=== PATIENT | female | born 2000 | race Two or more races ===

== ENCOUNTER 2025-08-26 06:15 | Inpatient (IN) | payer MEDICAID ==
[2025-08-25 14:33] LABS: Hematocrit 36.4 % (36.0-46.0); Hemoglobin 11.7 g/dL (12.2-16.2); Mean Corpuscular Hemoglobin 26.3 pg (28.0-32.0); Mean Corpuscular Volume 81.6 fL (80.0-100.0); Nucleated Red Blood Cells % 0.0 %
[2025-08-25 14:47] LABS: INR 1.02 (0.9-1.15); Partial Thromboplastin Time 29.7 SEC (24.5-34.5); Prothrombin Time 10.8 sec (9.3-11.8)
[2025-08-25 15:06] LABS: Urine Protein, UAD TRACE (Negative)
[2025-08-25 15:43] LABS: Alkaline Phosphatase 112 U/L (46-116); Anion Gap 10 (5-15); BUN/Creatinine Ratio 18.2 (10.0-20.0); Blood Urea Nitrogen 12 mg/dL (9-23); Calcium 9.4 mg/dL (8.7-10.4); Carbon Dioxide 26 mmol/L (20-31); Chloride 104 mmol/L (98-107); Glucose 106 mg/dL (74-106); Potassium 4.2 mmol/L (3.5-5.1); Sodium 140 mmol/L (136-145)
[2025-08-25 15:44] LABS: Albumin 4.6 g/dL (3.2-4.8); Bilirubin, Total 0.4 mg/dL (0.2-1.0)
[2025-08-25 15:49] LABS: Alanine Aminotransferase 293 U/L (7-40); Total Protein 8.3 g/dL (5.7-8.2)
[2025-08-26] VITALS (8 sets, daily range): BP systolic 10–120; BP diastolic 70–83; PULSE 80–109; RESP 14–20; TEMP 97.6–98; O2SAT 93–100
[~2025-08-26] VITALS: Ht 160 cm; Wt 78.9 kg
[2025-08-26] MEDS: SUCCINYLCHOLINE CHLORIDE 20 MG/ML 10ML VIAL IV ONE (07:27)
[2025-08-26] MEDS: ROCURONIUM 10MG/ML 10ML VIAL IV ONE (07:27)
[2025-08-26] MEDS ORDERED: MORPHINE SULFATE INJ 2 MG/ml SYRG IV PRN (07:30)
[2025-08-26] MEDS ORDERED: HYDROmorphone HCL 2 MG/ML VL/or syr IV PRN ×2 (07:30)
[2025-08-26] MEDS: KETOROLAC TROMETH 30 MG/ML 1ML VIAL IV ONE (07:30)
[2025-08-26] MEDS: TRANEXAMIC ACID 20 ML ONE (07:31)
--- NOTE | 2025-08-26 07:34 | DVHHP2 ---
History Allergies: Coded Allergies: NO KNOWN ALLERGIES (Unverified , 08/24/25) Chief Complaint: Symptomatic cholelithiasis Present Illness(Onset/Duration Mrs. Lalo gil is a 25-year-old female who presents today for elective laparoscopic cholecystectomy. She has had symptomatic cholelithiasis for sev eral months now. She has a ultrasound from 04/08/2025 that shows multiple gallstones within the gallbladder wall lumen. She has no complaints this morning, is not sacral recently sick, denies fevers chills nausea vomiting changes in urinary or stooling habits. Brother withVonWillebrand's disease Past Surgical History Past medical history gallstones past surgical history denies Physical Exam Skin No jaundice EENT No icterus, neck supple Chest and Lungs Nonlabored breathing with symmetric expansion Abdomen Nondistended, soft, depressible, nontender Plan Mrs. Soriano is a 25-year-old female who presents with symptomatic cholelithiasis for elective laparoscopic cholecystectomy. Patient does not have any questions this morning and would like to proceed with surgery as planned. -we will proceed with surgery as planned -we will need admission for observation JESSICA RIVERA MD Aug 26, 2025 07:34
[2025-08-26] MEDS ORDERED: KETAMINE 50mg/ML 1ml syringe ONE (07:43)
[2025-08-26] MEDS ORDERED: MIDAZOLAM HCL 2MG/2ML 2ml VIAL (1mg/ml) ONE (07:43)
[2025-08-26] MEDS ORDERED: MEPERIDINE HCL (25 MG/ML) 1ML VIAL ONE (07:43)
[2025-08-26] MEDS ORDERED: fentaNYL CITRATE 100 MCG/2 ML VL ONE (07:43)
[2025-08-26] MEDS ORDERED: PROPOFOL 10 MG/ML 20 ML IV ONE (07:43)
[2025-08-26] MEDS ORDERED: LIDOCAINE 1% INJ PF 5ML AMP ONE (07:43)
[2025-08-26] MEDS ORDERED: SODIUM CHLORIDE LOCK 10 ML ONE (07:43)
[2025-08-26] MEDS ORDERED: LIDOCAINE HCL 2% TOP JELLY 5ML TOP ONE (07:43)
[2025-08-26] MEDS ORDERED: ONDANSETRON HCL 4 MG/2 ML VIAL ONE (07:43)
[2025-08-26] MEDS ORDERED: GLYCOPYRROLATE 0.2 MG/ML 1ML VIAL ONE (08:48)
[2025-08-26] MEDS ORDERED: NEOSTIGMINE 1 MG/ML INJ (10mg/10ML VIAL) ONE (08:48)
[2025-08-26] MEDS: BUPIVACAINE 0.25% INJ 50ML VIAL ONE (09:03)
--- NOTE | 2025-08-26 09:29 | DVHOP2 ---
Operative Report - 2 Report Details Date: 08/26/25 Preop Diagnosis: Symptomatic cholelithiasis Postop Diagnosis: Same Surgeon: Jad Pena MD Anesthesiologist: Dr. Hutchinson Anesthesia: General Consent: The patient was informed of the risks and benefits of the procedure. These include but are not limited to complications of anesthesia, postoperative infection, incomplete relief of symptoms, recurrence of symptoms, damage to blood vessels, nerves and tendons, deep venous thrombosis, pulmonary embolism and possible need for repeat surgery in the future. Complications: None Estimated Blood Loss: 10 mL Findings: Normal-appearing gallbladder. Fatty liver Indications for Surgery: Symptomatic gallstones Name of Procedure Performed Laparoscopic cholecystectomy Procedure Details Procedure Details: Upon arriving to the operating room the patient was transferred to the operating table and placed in the supine position with arms extended. General endotracheal anesthesia was induced. Time-out was observed. Patient was prepped and draped in the standard sterile surgical fashion with chlorhexidine. I then proceeded to make an infraumbilical curvilinear incision and carried the dissection down to fascia. Once at the fascia I grasped the umbilical stalk with a Ct clamp and walked it to its base. Once at the base of the umbilical stalk it was retracted superiorly and I entered the peritoneal cavity utilizing Laura technique. I then placed a [id number] fascial retention stitch of 0 Vicryl. I then introduced the Laura cannula and insufflated the peritoneal cavity to 15 mmHg with toleration. I then introduced a 10 mm 30 degree laparoscope, surveyed the entry site, no injuries noted. Patient was then placed in the reverse Trendelenburg [id number] position. I then placed 3 additional working ports 5 mm incised, at the epigastric area, at the midclavicular subcostal area, and right flank area. I then directed my attention to the liver and gallbladder. The liver was enlarged, consistent with fatty liver. Gallbladder was then grasped at its fundus and retracted cephalad and towards the right shoulder, the gallbladder appeared normal. A 2nd retractor was placed in the infundibulum and retracted laterally. I then proceeded to incise the overlying peritoneum at the base of the gallbladder and carried the dissection down to the liver, thus exposing Calot triangle. While doing this I got into a lateral gallbladder vessel, has some bleeding from it, controlled it with a clip and hemostasis achieved. I then proceeded to fully skeletonize Calot triangle until I saw 2 and only 2 structures entering the gallbladder, the cystic duct and cystic artery. Critical view was obtained. I then proceeded to milk the cystic duct for any stones, non felt. I then proceeded to clip the cystic duct with 3 5 mm clips proximal 1 distal. The artery was clipped with 2 5 mm clips proximal 1 distal. Both the duct and artery were transected. I then carefully started taking down the gallbladder attachments to the liver, and I encountered posterior cystic artery branch, this posterior artery was dissected and clipped twice proximal 1 distal. This posterior artery was transected. I then continued taking the gallbladder off of the liver bed with electrocautery. Once the gallbladder was completely off of the liver bed it was placed in the Endo-Catch bag and taken out of the peritoneal cavity through the infraumbilical incision. I then proceeded to take a look at the gallbladder fossa, there were some small areas of ooze, that were cauterized and hemostasis achieved. I then irrigated the fossa under the liver and over the liver until all effluent was clear. I then proceeded to take a 2nd look at the gallbladder fossa, it was hemostatic. I then took a look at the clips they were all in place and everything was hemostatic. This concluded the intraperitoneal portion of the operation. I then proceeded to remove the 3 5 mm working ports under direct vision, no bleeding from abdominal wall. The peritoneal cavity was allowed to fully desufflate. All counts complete and correct at the end of procedure. The previous fascial retention stitch was closed, and I had to place 2 additional interrupted 0 Vicryl stitches in the inferior pole of the fascia given that it was still open. After placing these 2 additional interrupted stitches, fascia was completely closed. All skin sites were closed with 4-0 Monocryl and Dermabond. 0.25% Marcaine was used as local anesthetic. Patient tolerated the procedure well and was transferred to PACU in stable condition. Specimen: Gallbladder and contents Condition Stable Disposition Still a Patient JAD RIVERA MD Aug 26, 2025 09:28
[2025-08-26] MEDS ORDERED: HYDROcodone-ACET 5/325MG TAB PO PRN (09:30)
[2025-08-26] MEDS: ACETAMINOPHEN IV 100 ML IV ONE (09:30)
[2025-08-26] MEDS: ACETAMINOPHEN IV 1000 MG/100ML (10MG/ML) IV ONE (10:01)
[2025-08-26] MEDS: METOCLOPRAMIDE HCL 5MG/ml INJ 2ml VIAL IV PRN (10:01)
[2025-08-26] MEDS: MORPHINE SULFATE 4 MG/ML SYR/VIAL IV PRN (10:02)
[2025-08-26] MEDS: ACETAMINOPHEN 325 MG TAB PO SCH (10:04)
[2025-08-26] MEDS: HYDROcodone-ACET 10/325MG TAB PO PRN (15:50)
[2025-08-27 01:00] VITALS: BP 106/74; PULSE 85; RESP 18; TEMP 98.3; O2SAT 93
[2025-08-27 05:00] VITALS: BP 111/79; PULSE 83; RESP 18; TEMP 98.3; O2SAT 94
[2025-08-27 06:50] LABS: Hematocrit 32.1 % (36.0-46.0); Hemoglobin 10.6 g/dL (12.2-16.2); Mean Corpuscular Hemoglobin 27.1 pg (28.0-32.0); Mean Corpuscular Volume 81.8 fL (80.0-100.0); Nucleated Red Blood Cells % 0.0 %
[2025-08-27 07:02] LABS: Albumin 4.2 g/dL (3.2-4.8); Alkaline Phosphatase 91 U/L (46-116); Anion Gap 10 (5-15); BUN/Creatinine Ratio 13.1 (10.0-20.0); Calcium 9.0 mg/dL (8.7-10.4); Carbon Dioxide 25 mmol/L (20-31); Chloride 104 mmol/L (98-107); Glucose 99 mg/dL (74-106); Potassium 3.8 mmol/L (3.5-5.1); Sodium 139 mmol/L (136-145); Total Protein 7.4 g/dL (5.7-8.2)
[2025-08-27 07:03] LABS: Bilirubin, Total 0.5 mg/dL (0.2-1.0)
[2025-08-27 07:09] LABS: Alanine Aminotransferase 212 U/L (7-40); Blood Urea Nitrogen 8 mg/dL (9-23)
[2025-08-27 07:37] LABS: Bilirubin, Direct 0.2 mg/dL (<0.3)
[2025-08-27 08:00] VITALS: PULSE 87; RESP 18
[2025-08-27 09:00] VITALS: BP 116/77; PULSE 87; RESP 18; TEMP 98.1; O2SAT 97
[2025-08-27] MEDS ORDERED: ACETAMINOPHEN 500 MG TAB or CAP PO ONE ×2 (09:15)
[2025-08-27] MEDS: ACETAMINOPHEN 325 MG TAB PO ONE (10:04)
--- NOTE | 2025-08-27 10:43 | DVHPN2 ---
Progress Note - Surgical Date Seen: Aug 27, 2025 Post op day Post op day: 1 Subjective Patient reports: Feels better (Patient feeling well, tolerating diet, pain manageable with pain meds and without any complaints.) Review of Systems: Deferred Objective Vital signs Vital Sign Date Time Temp Pulse Resp B/P (MAP) Pulse Ox O2 Delivery O2 Flow Rate FiO2 08/27/25 10:04 98.1 08/27/25 09:00 87 18 116/77 (90) 97 08/26/25 20:00 Room Air* 0 21 Total Intake and Output 08/26/25 08/26/25 08/27/25 15:00 23:00 07:00 Intake Total 100 ml 300 ml 400 ml Balance 100 ml 300 ml 400 ml Medications Current Medications Medications Dose Ordered Sig/Dominick Route Start Time Stop Time Status Last Admin Dose Admin Acetaminophen 650 mg Q6HR PO 08/26/25 12:00 08/27/25 00:09 650 MG Acetaminophen/ Hydrocodone Bitart 1 tab Q4HPRN PRN PO 08/26/25 09:30 Acetaminophen/ Hydrocodone Bitart 1 tab Q4HP PRN PO 08/26/25 09:30 08/26/25 15:50 1 TAB Laboratory Laboratory Tests 08/27/25 06:23 Test 08/27/25 06:23 Range/Units Serum Glucose 99 74-106 mg/dL Examination: GENERAL:Normal (AAO x3), HEENT:Normal (No icterus, neck supple), LUNGS:Normal (Nonlabored breathing with symmetric expansion), ABDOMEN:Normal (Nondistended, soft, depressible, incision sites with overlying skin glue, no surrounding ecchymosis, no signs of infection, appropriate tenderness), SKIN:Normal (No jaundice) Labs and/or images reviewed: Labs reviewed by me (No leukocytosis) Problem List/Assessment/Plan Assessment and Plan Mrs. Soriano is a 25-year-old female who presented for elective cholecystectomy and is currently postop day 1 from laparoscopic cholecystectomy for symptomatic cholelithiasis. Patient was admitted for overnight observation given that she has a unclear diagnosis of von Willebrand's disease. Last this morning pretty unremarkable, no leukocytosis, hemoglobin minimal downtrend is likely to interrupt losses + IV fluid hydration, transaminitis without elevation of T bilirubin level due to cautery of the liver. Patient is doing well and is cleared for discharge per surgical standpoint. 1. Cleared for discharge per surgical standpoint 2. Already prescribed Tylenol 3 [facility] 3. No lifting over 10 lb for 6 weeks 4. May shower, soap and water okay to run over incision sites. No swimming and/or bathing for 2 weeks. 5. 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 For better results alternate the medications. 6. No driving while taking narcotics 7. Low-fat diet 8. Follow up with Dr. Gray at [facility] in 2-4 weeks, please call for appointment. Plan discussed with Plan discussed with: Patient Visit Coding Surgery Date of Service if different f: Aug 27, 2025 Billing Provider: JESSICA RIVERA MD Surgery Visit Codes: [id number] INP/OBS CARE(HIGH) JESSICA RIVERA MD Aug 27, 2025 10:43
--- NOTE | 2025-08-27 11:47 | DVHINCON2 ---
Date Seen: Aug 27, [address] Jad Gray History of Present Illness Came for elective cholecystectomy yesterday Had procedure and going well PMH none Past Medical History PMH none Past Surgical History None Family History: Diabetes mellitus G8 FATHER Allergies: Coded Allergies: NO KNOWN ALLERGIES (Unverified , 08/24/25) Home Meds No Active Prescriptions or Reported Meds Current Medications Current Medications Medications (Trade) Dose Ordered Sig/Dominick Route PRN Reason Start Time Stop Time Status Last Admin Acetaminophen (Tylenol Tablet) 650 mg Q6HR PO 08/26/25 12:00 08/27/25 00:09 Vital Signs Vital Signs Date Time Temp Pulse Resp B/P (MAP) Pulse Ox O2 Delivery O2 Flow Rate FiO2 08/27/25 10:04 98.1 08/27/25 09:00 87 18 116/77 (90) 97 08/26/25 20:00 Room Air* 0 21 Physical Exam GEN: Healthy appearing, well-developed, NAD. PSYCH: Good Judgment. AOx3. Normal memory, mood, and affect. HEENT: -Head: NC/AT; -Eyes: No discharge or redness; -Ears: External ears are normal. -Nose: Normal nares. -Mouth and throat: MMM. Normal gums, mucosa, palate,. Good dentition. CV: RRR, no m/r/g. LUNGS: CTAB, no w/r/c. ABD: Soft, NT/ND, NBS, no masses or organomegaly. : N/A SKIN: Warm, well perfused. No skin rashes or abnormal lesions. MSK: Normal gait. No deformities. EXT: No clubbing, cyanosis, or edema. NEURO: Ambulating with no limitations. No focal deficits. Labs/Diagnostic Data Labs Test 08/27/25 06:23 08/25/25 14:20 Range/Units White Blood Count 9.4 4.4-10.8 10^3/uL Red Blood Count 3.93 L 4.0-5.20 10^6/uL Hemoglobin 10.6 L 12.2-16.2 g/dL Hematocrit 32.1 #L 36.0-46.0 % Mean Corpuscular Volume 81.8 80.0-100.0 fL Mean Corpuscular Hemoglobin 27.1 L 28.0-32.0 pg Mean Corpuscular Hemoglobin Concent 33.1 32.0-36.0 g/dL Red Cell Distribution Width 14.7 H 11.8-14.3 % Platelet Count 219 140-450 10^3/uL Mean Platelet Volume 7.6 6.9-10.8 fL Neutrophils (%) (Auto) 72.5 37.0-80.0 % Lymphocytes (%) (Auto) 19.4 10.0-50.0 % Monocytes (%) (Auto) 6.7 0.0-12.0 % Eosinophils (%) (Auto) 1.3 0.0-7.0 % Basophils (%) (Auto) 0.1 0.0-2.0 % Neutrophils # (Auto) 6.8 1.6-8.6 10 ^3/uL Lymphocytes # (Auto) 1.8 0.4-5.4 10 ^3/uL Monocytes # (Auto) 0.6 0-1.3 10 ^3/uL Eosinophils # (Auto) 0.1 0-0.8 10 ^3/uL Basophils # (Auto) 0 0-0.2 10 ^3/uL Nucleated Red Blood Cells 0.0 % Sodium Level 139 136-145 mmol/L Potassium Level 3.8 3.5-5.1 mmol/L Chloride Level 104 98-107 mmol/L Carbon Dioxide Level 25 20-31 mmol/L Anion Gap 10 5-15 Blood Urea Nitrogen 8 L 9-23 mg/dL Creatinine 0.61 0.550-1.02 mg/dL Glomerular Filtration Rate Calc 126 >90 mL/min BUN/Creatinine Ratio 13.1 10.0-20.0 Serum Glucose 99 74-106 mg/dL Calcium Level 9.0 8.7-10.4 mg/dL Total Bilirubin 0.5 0.2-1.0 mg/dL Direct Bilirubin 0.2 <0.3 mg/dL Aspartate Amino Transferase (AST) 108 H 13-40 U/L Alanine Aminotransferase (ALT) 212 H 7-40 U/L Alkaline Phosphatase 91 46-116 U/L Total Protein 7.4 5.7-8.2 g/dL Albumin 4.2 3.2-4.8 g/dL Prothrombin Time 10.8 9.3-11.8 sec Prothrombin Time INR 1.02 0.9-1.15 Activated Partial Thromboplast Time 29.7 24.5-34.5 SEC Urine Color Light-yellow Yellow Urine Clarity Clear Clear Urine pH 6.5 5.0-9.0 Urine Specific [place] 1.026 1.001-1.035 Urine Protein Trace H Negative Urine Ketones Negative Negative Urine Blood 1+ H Negative /uL Urine Nitrite Negative Negative Urine Bilirubin Negative Negative Urine Urobilinogen Normal Negative mg/dL Urine Leukocyte Esterase Trace Negative /uL Urine RBC 13 0 - 4 /hpf Urine Microscopic WBC 6 H 0-5 /HPF Urine Squamous Epithelial Cells Few <5 /hpf Urine Bacteria None seen None Seen /hpf Urine Mucus Few None Seen Urine Glucose Normal Normal mg/dL Urine Test Negative Negative Assessment Cholelithiasis s/p surgery Elevated transaminitis Most likely post surgery Plan/Recommendation Can be discharged from medically standpoint follow with PCP for liver labs Plan discussed with: Patient Date of Service: Aug 27, 2025 Billing Provider: ELBA DANG MD Common Visit Codes: [id number] INP/OBS CARE (HIGH) ELBA DANG MD Aug 27, 2025 11:47
[2025-08-27 13:00] VITALS: BP 111/72; PULSE 74; RESP 18; TEMP 97.9; O2SAT 97
[2025-08-27] MEDS ORDERED: HYDR-4902 PO (13:21)
[2025-08-27 15:28] VITALS: BP 116/77; PULSE 87; RESP 18; TEMP 98.1; O2SAT 97
--- NOTE | 2025-08-27 15:29 | DVHDS2 ---
Discharge Summary Date of Admission Aug 26, 2025 at 07:35 Date of Discharge: Aug 27, 2025 Labs/Diagnostic Data: Laboratory Results Test 08/27/25 06:23 08/25/25 14:20 White Blood Count 9.4 10^3/uL (4.4-10.8) Red Blood Count 3.93 10^6/uL (4.0-5.20) Hemoglobin 10.6 g/dL (12.2-16.2) Hematocrit 32.1 % (36.0-46.0) Mean Corpuscular Volume 81.8 fL (80.0-100.0) Mean Corpuscular Hemoglobin 27.1 pg (28.0-32.0) Mean Corpuscular Hemoglobin Concent 33.1 g/dL (32.0-36.0) Red Cell Distribution Width 14.7 % (11.8-14.3) Platelet Count 219 10^3/uL (140-450) Mean Platelet Volume 7.6 fL (6.9-10.8) Neutrophils (%) (Auto) 72.5 % (37.0-80.0) Lymphocytes (%) (Auto) 19.4 % (10.0-50.0) Monocytes (%) (Auto) 6.7 % (0.0-12.0) Eosinophils (%) (Auto) 1.3 % (0.0-7.0) Basophils (%) (Auto) 0.1 % (0.0-2.0) Neutrophils # (Auto) 6.8 10 ^3/uL (1.6-8.6) Lymphocytes # (Auto) 1.8 10 ^3/uL (0.4-5.4) Monocytes # (Auto) 0.6 10 ^3/uL (0-1.3) Eosinophils # (Auto) 0.1 10 ^3/uL (0-0.8) Basophils # (Auto) 0 10 ^3/uL (0-0.2) Nucleated Red Blood Cells 0.0 % Sodium Level 139 mmol/L (136-145) Potassium Level 3.8 mmol/L (3.5-5.1) Chloride Level 104 mmol/L (98-107) Carbon Dioxide Level 25 mmol/L (20-31) Anion Gap 10 (5-15) Blood Urea Nitrogen 8 mg/dL (9-23) Creatinine 0.61 mg/dL (0.550-1.02) Glomerular Filtration Rate Calc 126 mL/min (>90) BUN/Creatinine Ratio 13.1 (10.0-20.0) Serum Glucose 99 mg/dL (74-106) Calcium Level 9.0 mg/dL (8.7-10.4) Total Bilirubin 0.5 mg/dL (0.2-1.0) Direct Bilirubin 0.2 mg/dL (<0.3) Aspartate Amino Transferase (AST) 108 U/L (13-40) Alanine Aminotransferase (ALT) 212 U/L (7-40) Alkaline Phosphatase 91 U/L (46-116) Total Protein 7.4 g/dL (5.7-8.2) Albumin 4.2 g/dL (3.2-4.8) Prothrombin Time 10.8 sec (9.3-11.8) Prothrombin Time INR 1.02 (0.9-1.15) Activated Partial Thromboplast Time 29.7 SEC (24.5-34.5) Urine Color Light-yellow (Yellow) Urine Clarity Clear (Clear) Urine pH 6.5 (5.0-9.0) Urine Specific [place] 1.026 (1.001-1.035) Urine Protein Trace (Negative) Urine Ketones Negative (Negative) Urine Blood 1+ /uL (Negative) Urine Nitrite Negative (Negative) Urine Bilirubin Negative (Negative) Urine Urobilinogen Normal mg/dL (Negative) Urine Leukocyte Esterase Trace /uL (Negative) Urine RBC 13 /hpf (0 - 4) Urine Microscopic WBC 6 /HPF (0-5) Urine Squamous Epithelial Cells Few /hpf (<5) Urine Bacteria None seen /hpf (None Seen) Urine Mucus Few (None Seen) Urine Glucose Normal mg/dL (Normal) Urine Test Negative (Negative) Other Laboratory Tests 08/27/25 06:23 Brief Hx & Hospital Course: Mrs. Lalo gil is a 25-year-old female who presents today for elective laparoscopic cholecystectomy. She has had symptomatic cholelithiasis for several months now. She has a ultrasound from 04/08/2025 that shows multiple gallstones within the gallbladder wall lumen. She has no complaints this morning, is not sacral recently sick, denies fevers chills nausea vomiting changes in urinary or stooling habits. Had lap jesus with no reported complications and able to tolerate food Condition at Discharge: Good Final Diagnosis/Problems List cholelithiasis Discharge Disposition: Home Discharge Instruct/Medications Diet: Regular Activity: No Restrictions, As Tolerated Follow Up/Referral: PCp in 7 days Medications: norco Scheduled Hydrocodone-Acetaminophen (Hydrocodone Bitartrate/AC 5-325 mg), 1 TAB PO TID Discharge Statement: "Patient was advised to return to the ER or call 911 if any headaches, dizziness, shortness of breath, chest pain, abdominal pain, bleeding, fevers, or worsening of medical condition. Patient was counseled about treatment plan, medications, possible side effects, patientverbalized understanding. All questions were answered to the best of my ability. This discharge took greater then 30 minutes in planning, reviewing documentation, counseling the patient, and discussing with other team members." ASSESSMENT ASSESSMENT Assessment cholelithiasis Date of Service: Aug 27, 2025 Billing Provider: ELBA DANG MD Common Visit Codes: [id number] DISCH DAY >30min ELBA DANG MD Aug 27, 2025 15:29
== END 2025-08-27 16:30 | disposition home or self-care (01) | DRG 263 ==
LOC: SUR 06:15 → OVERFLOW 07:35 → CENTRAL 11:17
PROVIDERS: ADMIT Hospitalist; ATTEND Hospitalist
PROC: 0FT44ZZ Resection of Gallbladder, Percutaneous Endoscopic Approach (ICD-10-PCS; principal; 2025-08-26 08:02)
DX: K80.20 Calculus of gallbladder without cholecystitis without obstruction (principal); K76.0 Fatty (change of) liver, not elsewhere classified; R74.01 Elevation of levels of liver transaminase levels; Z83.3 Family history of diabetes mellitus
CPT/HCPCS: 36415; 80053; 81001; 81025; 82248; 85025; 85610; 85730; 86850; 86900; 86901; G0378; J0131; J0330; J0694; J2250; J2405; J2704; J3490